=== PATIENT | female | born 2000 | race Two or more races ===

== ENCOUNTER 2021-09-01 19:13 | Emergency (ER) | payer OTHER ==
[~2021-09-01] VITALS: Ht 170.2 cm; Wt 81.6 kg
[2021-09-01] MEDS ORDERED: CLEOCIN HCL300 MG PO (22:01)
[2021-09-01] MEDS ORDERED: ULTRACET PO (22:01)
== END 2021-09-01 22:21 | disposition home or self-care (01) ==
LOC: ER 19:13 → EMR PED 19:24
DX: K08.89 Other specified disorders of teeth and supporting structures (principal)

== ENCOUNTER 2021-09-04 11:05 | Emergency (ER) | payer OTHER ==
[~2021-09-04] VITALS: Ht 175.3 cm; Wt 73.9 kg
[~2021-09-04 11:05] MED LIST: CLEOCIN HCL300 MG PO; ULTRACET PO
== END 2021-09-04 13:25 | disposition home or self-care (01) ==
LOC: ER 11:05
DX: K04.7 Periapical abscess without sinus (principal); K05.10 Chronic gingivitis, plaque induced

== ENCOUNTER 2022-01-25 11:28 | Emergency (ER) | payer OTHER ==
[~2022-01-25] VITALS: Ht 177.8 cm; Wt 70.8 kg
[2022-01-25] MEDS ORDERED: DECADRON4 MG PO (13:41)
[2022-01-25] MEDS ORDERED: AMOX-CLAV 875-1 EAC1 PO (13:41)
== END 2022-01-25 14:29 | disposition home or self-care (01) ==
LOC: ER 11:28 → EMR PED 11:32
DX: J02.9 Acute pharyngitis, unspecified (principal); Z20.822 Contact with and (suspected) exposure to COVID-19

== ENCOUNTER 2022-04-28 21:43 | Emergency (ER) | payer OTHER ==
[~2022-04-28] VITALS: Ht 172.7 cm; Wt 69.4 kg
[~2022-04-28 21:43] MED LIST changes: +AMOX-CLAV 875-1 EAC1 PO; +DECADRON4 MG PO
[2022-04-28] MEDS ORDERED: ZOFRAN8 MG PO (23:58)
== END 2022-04-29 00:21 | disposition home or self-care (01) ==
LOC: ER 21:43
DX: B34.9 Viral infection, unspecified (principal); R11.2 Nausea with vomiting, unspecified; Z20.822 Contact with and (suspected) exposure to COVID-19

== ENCOUNTER 2022-05-27 10:47 | Emergency (ER) | payer OTHER ==
[~2022-05-27] VITALS: Ht 154.9 cm; Wt 68.9 kg
[~2022-05-27 10:47] MED LIST changes: +ZOFRAN8 MG PO
[2022-05-27] MEDS ORDERED: AMOX-CLAV 875-1 EAC1 PO (13:54)
== END 2022-05-27 14:08 | disposition home or self-care (01) ==
LOC: ER 10:47
DX: J02.9 Acute pharyngitis, unspecified (principal)

== ENCOUNTER 2022-05-30 21:41 | Emergency (ER) | payer OTHER ==
[~2022-05-30] VITALS: Ht 180.3 cm; Wt 69.4 kg
== END 2022-05-31 00:53 | disposition home or self-care (01) ==
LOC: ER 21:41
DX: J03.80 Acute tonsillitis due to other specified organisms (principal); B96.89 Other specified bacterial agents as the cause of diseases classified elsewhere

== ENCOUNTER 2023-03-27 08:53 | Emergency (ER) | payer OTHER ==
[~2023-03-27] VITALS: Ht 172.7 cm; Wt 69.4 kg
[2023-03-27] MEDS ORDERED: PRENATAL + DHA1 EAC1 PO (09:48)
[2023-03-27 11:40] LABS: HEMATOCRIT 34.4 % (36.0-45.00); HEMOGLOBIN 11.9 g/dL (12.0-15.00); MEAN CORPUSCULAR HEMOGLOBIN 31.6 pg (27.00-32.0); MEAN CORPUSCULAR HGB CONC 34.7 g/dl (32.0-36.0); PLATELET COUNT 195 K/uL (150-450); RED BLOOD COUNT 3.78 M/uL (4.00-6.00); RED CELL DISTRIBUTION WIDTH 13.4 % (11.5-14.5)
[2023-03-27 12:37] LABS: CALCIUM 9.4 mg/dL (8.5-10.1); CREATININE SERUM 0.48 mg/dL (0.55-1.02); GFR 161.72; POTASSIUM 4.1 mEq/L (3.5-5.1)
[2023-03-27 13:23] LABS: URINE APPEARANCE Clear; URINE BILIRRUBIN Negative (NEGATIVE); URINE BLOOD Negative; URINE COLOR Yellow; URINE GLUCOSE Negative (NEGATIVE); URINE LEUKOCYTE Trace; URINE NITRATE Negative; URINE PROTEIN Negative (NEGATIVE); URINE UROBILINOGEN 0.2 E.U./dl
[2023-03-27 13:26] LABS: URINE BACTERIA 1070.8 uL (0.0-1933); URINE EPITHELIAL CELLS 33.1 uL (0.0-38.8); URINE RBC 2.4 uL (0.0-20.8); URINE WBC 17.6 uL (0.0-23.2)
== END 2023-03-27 15:10 | disposition left against medical advice (07) ==
LOC: ER 08:54
PROVIDERS: Emergency Medicine
DX: O26.891 Other specified pregnancy related conditions, first trimester (principal); Z3A.08 8 weeks gestation of pregnancy; J45.909 Unspecified asthma, uncomplicated

== ENCOUNTER 2023-04-14 15:18 | Outpatient (CLI) | payer OTHER ==
[~2023-04-14 15:18] MED LIST changes: +PRENATAL + DHA1 EAC1 PO
== END 2023-04-14 15:20 | disposition home or self-care (01) ==
LOC: PRENATAL 15:18
PROVIDERS: ATTEND Obstetrics & Gynecology Maternal & Fetal Medicine
DX: O36.80X0 Pregnancy with inconclusive fetal viability, not applicable or unspecified (principal); Z36.82 Encounter for antenatal screening for nuchal translucency; Z14.8 Genetic carrier of other disease; Z3A.11 11 weeks gestation of pregnancy

== ENCOUNTER → 2023-06-17 16:15 | Outpatient (CLI) | payer OTHER | END | disposition home or self-care (01) | LOC: PRENATAL 16:15 | PROVIDERS: ATTEND Obstetrics & Gynecology Maternal & Fetal Medicine | DX: O35.3XX0 Maternal care for (suspected) damage to fetus from viral disease in mother, not applicable or unspecified (principal); O44.00 Complete placenta previa NOS or without hemorrhage, unspecified trimester; O99.891 Other specified diseases and conditions complicating pregnancy; Z3A.20 20 weeks gestation of pregnancy ==

== ENCOUNTER → 2023-09-10 10:22 | Outpatient (CLI) | payer OTHER | END | disposition home or self-care (01) | LOC: PRENATAL 10:22 | PROVIDERS: ATTEND Obstetrics & Gynecology Maternal & Fetal Medicine | DX: O26.843 Uterine size-date discrepancy, third trimester (principal); O36.8130 Decreased fetal movements, third trimester, not applicable or unspecified; O99.891 Other specified diseases and conditions complicating pregnancy; O36.63X0 Maternal care for excessive fetal growth, third trimester, not applicable or unspecified; O99.013 Anemia complicating pregnancy, third trimester; Z3A.32 32 weeks gestation of pregnancy ==

== ENCOUNTER → 2023-10-07 11:05 | Outpatient (CLI) | payer OTHER | END | disposition home or self-care (01) | LOC: PRENATAL 11:05 | PROVIDERS: ATTEND Obstetrics & Gynecology Maternal & Fetal Medicine | DX: O26.843 Uterine size-date discrepancy, third trimester (principal); O36.8130 Decreased fetal movements, third trimester, not applicable or unspecified; O99.891 Other specified diseases and conditions complicating pregnancy; O36.63X0 Maternal care for excessive fetal growth, third trimester, not applicable or unspecified; O99.013 Anemia complicating pregnancy, third trimester; Z3A.36 36 weeks gestation of pregnancy ==